=== PATIENT | female | born 1970 | race African-American/Black ===

== ENCOUNTER 2021-10-26 13:47 | Emergency (ER) | payer OTHER ==
[~2021-10-26] VITALS: Ht 172.7 cm; Wt 83.0 kg
[2021-10-26] MEDS ORDERED: SODIUM CHLORIDE 0.9% 500 ML IV ONE ×2 (14:15→14:30)
[2021-10-26] MEDS ORDERED: ACETAMINOPHEN 325MG TABLET PO PRN (14:15)
[2021-10-26 14:42] LABS: BASOPHILS % 0.8 % (0.0-2.0); EOSINOPHILS % 0.1 % (0.0-5.0); HEMATOCRIT. 32.9 % (36.0-48.0); HEMOGLOBIN. 10.2 g/dL (12.0-16.0); LYMPHOCYTES % 14.9 % (20.0-50.0); MEAN CORPUSCULAR HEMOGLOBIN 23.3 pg (28.0-32.0); MEAN CORPUSCULAR VOLUME 75.6 fL (81.0-99.0); MEAN PLATELET VOLUME 8.3 fl (7.4-10.4); MONOCYTES % 7.5 % (2.0-8.0); NEUTROPHILS % 76.7 % (40.0-76.0); PLATELET 385 x1000/uL (130-400); RED BLOOD CELL COUNT 4.35 mill/uL (4.2-5.4); RED CELL DISTRIBUTION WIDTH 20.1 % (11.6-14.6)
[2021-10-26 14:47] LABS: CHLORIDE 105 mEq/L (98-107)
[2021-10-26 14:58] LABS: B-HCG QUANTITATIVE < 1 mIU/mL (<3)
[2021-10-26] MEDS ORDERED: IRON15TA3 MT (15:22)
[2021-10-26 16:01] VITALS: BP 162/56
== END 2021-10-26 16:03 | disposition home or self-care (01) ==
LOC: ER 14:11
DX: N93.9 Abnormal uterine and vaginal bleeding, unspecified (principal); D25.9 Leiomyoma of uterus, unspecified; D64.9 Anemia, unspecified; I10 Essential (primary) hypertension; Z13.9 Encounter for screening, unspecified
CPT/HCPCS: 36415; 76830; 76856; 80053; 84702; 85025; 86850; 86900; 86901; 93005; 96360; 99285; J7040